=== PATIENT | female | born 1970 | race Caucasian/White ===

== ENCOUNTER 2016-09-19 20:30 | Emergency (ER) | payer BC, OTHER ==
[~2016-09-19] VITALS: Ht 154.9 cm; Wt 76.3 kg
[~2016-09-19 20:30] MED LIST: PROMSYP PO; TEMA30CA PO; TOPI100 PO; TOPI50TA4 PO; XANA1TAB6 PO; ZITH250T PO
[2016-09-19 21:10] VITALS: BP 107/76; PULSE 88; RESP 18; TEMP 97.9; O2SAT 100
[2016-09-19] MEDS ORDERED: ROPI5TAB PO (21:32)
[2016-09-19] MEDS ORDERED: HYDR12.57 PO (21:32)
[2016-09-19] MEDS ORDERED: ALPR1TAB3 PO (21:32)
[2016-09-19] MEDS ORDERED: NEXI20CA PO (21:32)
[2016-09-19] MEDS ORDERED: LISI-515 PO (21:32)
[2016-09-19] MEDS ORDERED: TEMA30CA PO (21:32)
[2016-09-19] MEDS ORDERED: KETOROLAC TROMETHAMINE 60 MG/2 ML (IM) VIAL IM ONE (22:15)
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
--- NOTE | 2016-09-19 22:49 | RADHPO ---
EXAM DATE/TIME: 09/19/2016 22:17 [facility] COMPARISON: No previous studies available for comparison. INDICATIONS : Right foot pain from fall. MEDICAL HISTORY : None. SURGICAL HISTORY : None. ENCOUNTER: Initial ACUITY: 1 day PAIN SCORE: 8/10 LOCATION: lateral and planter side of foot. FINDINGS: Three view examination of the right foot demonstrates no soft tissue swelling, dislocation, or fractu re. The tarsal bones appear intact. The interphalangeal and metatarsophalangeal joints are intact. The calcaneus is intact. Bony mineralization is normal. CONCLUSION: 1. No acute findings. Mild hallux valgus deformity. Carmine Haywood MD on September 19, 2016 at 22:47 Board Certified Radiologist. This report was verified electronically.
--- NOTE | 2016-09-19 22:50 | RADHPO ---
EXAM DATE/TIME: 09/19/2016 22:20 [facility] COMPARISON: No previous studies available for comparison. INDICATIONS : Right ankle pain from fall. MEDICAL HISTORY : Prior sprained right ankle SURGICAL HISTORY : None. ENCOUNTER: Initial ACUITY: 1 day PAIN SCORE: 8/10 LOCATION: lateral side of ankle. FINDINGS: Three view exam was performed of the right ankle. The bony structures are in normal alignment. No e vidence of fracture, dislocation, or soft tissue swelling. The ankle mortise is intact. No radiopaq ue foreign bodies are seen. Bony mineralization is normal. CONCLUSION: Normal examination for a patient of this age. Carmine Haywood MD on September 19, 2016 at 22:48 Board Certified Radiologist. This report was verified electronically.
[2016-09-19] MEDS ORDERED: NAPR500T PO (22:56)
== END 2016-09-19 23:09 | disposition home or self-care (01) ==
LOC: PHEFT 20:30
DX: S93.401A Sprain of unspecified ligament of right ankle, initial encounter (principal); S93.601A Unspecified sprain of right foot, initial encounter; F41.9 Anxiety disorder, unspecified; I10 Essential (primary) hypertension; M20.11 Hallux valgus (acquired), right foot; W10.8XXA Fall (on) (from) other stairs and steps, initial encounter; Y93.9 Activity, unspecified; Y99.9 Unspecified external cause status
CPT/HCPCS: 73610; 73630; 96372; 99283; E0113; J1885

== ENCOUNTER 2017-06-05 19:47 | Emergency (ER) | payer BC, OTHER ==
[~2017-06-05] VITALS: Ht 154.9 cm; Wt 78.0 kg
[~2017-06-05 19:47] MED LIST changes: +ALPR1TAB3 PO; +HYDR12.57 PO; +LISI-515 PO; +NAPR500T2 PO; +NEXI20CA PO; -PROMSYP PO; +ROPI5TAB PO; -TOPI100 PO; -TOPI50TA4 PO; -XANA1TAB6 PO; -ZITH250T PO
[2017-06-05 19:58] VITALS: BP 105/73; PULSE 98; TEMP 97.9; O2SAT 99
[2017-06-05] MEDS ORDERED: LISI20TA3 PO (20:39)
[2017-06-05] MEDS ORDERED: TOPI50TA7 PO (20:39)
[2017-06-05] MEDS ORDERED: RANI150T PO ×2 (20:39→22:44)
[2017-06-05] MEDS ORDERED: CYCL10TA PO (20:39)
[2017-06-05] MEDS ORDERED: TOPI200T7 PO (20:39)
[2017-06-05] MEDS ORDERED: PANTOPRAZOLE SODIUM 40 MG VIAL IV PUSH ONE (21:00)
[2017-06-05] MEDS ORDERED: ONDANSETRON HCL 4 MG/2 ML VIAL IV PUSH ONE (21:00)
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
[2017-06-05 21:19] LABS: AUTOMATED NEUTROPHIL # 6.7 TH/MM3 (1.8-7.7); BASOPHIL # 0.2 TH/MM3 (0-0.2); BASOPHIL % 2.1 % (0.0-2.0); EOSINOPHIL # 0.1 TH/MM3 (0-0.4); EOSINOPHIL % 1.3 % (0.0-4.0); HEMATOCRIT 41.5 % (35.0-46.0); HEMOGLOBIN 13.5 GM/DL (11.6-15.3); LYMPH % 29.5 % (9.0-44.0); LYMPHOCYTE # 3.2 TH/MM3 (1.0-4.8); MEAN CORPUSCULAR HEMOGLOBIN 28.5 PG (27.0-34.0); MEAN CORPUSCULAR HGB CONC 32.5 % (32.0-36.0); MEAN PLATELET VOLUME 9.6 FL (7.0-11.0); MONO % 7.5 % (0.0-8.0); MONOCYTE # 0.8 TH/MM3 (0-0.9); NEUT % 59.6 % (16.0-70.0); PLATELET COUNT 207 TH/MM3 (150-450); RED BLOOD COUNT 4.72 MIL/MM3 (4.00-5.30); RED CELL DISTRIBUTION WIDTH 13.9 % (11.6-17.2)
[2017-06-05 21:27] LABS: CHLORIDE 104 MEQ/L (98-107); SODIUM (NA) 138 MEQ/L (136-145)
[2017-06-05 21:31] LABS: ALBUMIN 3.7 GM/DL (3.4-5.0); BICARBONATE 27.7 MEQ/L (21.0-32.0); BLOOD UREA NITROGEN 17 MG/DL (7-18); CALCIUM 9.8 MG/DL (8.5-10.1); GLUCOSE,RANDOM 99 MG/DL (74-106); LIPASE 124 U/L (73-393)
[2017-06-05 21:34] LABS: ALT (GPT) 17 U/L (10-53); AST (GOT) 9 U/L (15-37); GLOMERULAR FILTRATION RATE 59 ML/MIN (>89)
[2017-06-05 21:36] LABS: TOTAL BILIRUBIN ADULT 0.2 MG/DL (0.2-1.0); TOTAL PROTEIN 7.3 GM/DL (6.4-8.2)
[2017-06-05 21:37] LABS: ALKALINE PHOSPHATASE 83 U/L (45-117)
[2017-06-05 22:39] LABS: BILIRUBIN, URINE NEG (NEG); BLOOD, URINE TRACE (NEG); GLUCOSE,URINE NEG (NEG); KETONE, URINE NEG (NEG); NITRITE,URINE NEG (NEG); PH, URINE 5.5 (5.0-8.5); URINE LEUKOCYTE ESTERASE NEG (NEG)
--- NOTE | 2017-06-05 22:55 | EKG ---
Date Performed: 06/05/2017 Time Performed: 21:10:34 PTAGE: 46 years EKG: Sinus rhythm WITH OCCASIONAL ECTOPIC PREMATURE COMPLEXES MINIMAL VOLTAGE CRITERIA FOR LVH, CONSIDER NORMAL VARIAN T BORDERLINE ECG NO PREVIOUS TRACING DOCTOR: Ambrosio Oneil Interpretating Date/Time 06/05/2017 22:53:56
[2017-06-05 23:01] LABS: URINE COLOR YELLOW (YELLW/STRAW)
[2017-06-05 23:02] LABS: RBC, URINE 0-3 /hpf (0-3); SQUAMOUS EPITHELIAL CELL URINE 0-5 /hpf (0-5); WBC, URINE 0-2 /hpf (0-5)
[2017-06-05 23:13] VITALS: BP 102/55; PULSE 75; RESP 16; O2SAT 100
[2017-06-05] MEDS ORDERED: ZOFR4TAB3 SL (23:13)
== END 2017-06-05 23:28 | disposition home or self-care (01) ==
LOC: PHED 19:47
DX: K27.9 Peptic ulcer, site unspecified, unspecified as acute or chronic, without hemorrhage or perforation (principal); K21.9 Gastro-esophageal reflux disease without esophagitis; I10 Essential (primary) hypertension
CPT/HCPCS: 80053; 81001; 83690; 84703; 85025; 93005; 96374; 96375; 99284; C9113; J2405

== ENCOUNTER 2017-07-28 18:34 | Emergency (ER) | payer OTHER ==
[~2017-07-28] VITALS: Ht 152.4 cm; Wt 72.5 kg
[~2017-07-28 18:34] MED LIST changes: +CYCL10TA PO; -HYDR12.57 PO; -LISI-515 PO; +LISI20TA3 PO; -NAPR500T2 PO; +RANI150T PO; -TEMA30CA PO; +TOPI200T7 PO; +TOPI50TA7 PO; +ZOFR4TAB3 SL
[2017-07-28 18:46] VITALS: BP 131/62; PULSE 73; RESP 18; TEMP 98.3; O2SAT 98
[2017-07-28] MEDS ORDERED: SODIUM CHLORIDE 0.9% FLUSH 10 ML FLUSH IVF PRN (19:15)
[2017-07-28] MEDS ORDERED: KETOROLAC TROMETHAMINE 30 MG/ML (IVP) VIAL IV PUSH ONE (19:15)
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
--- NOTE | 2017-07-28 20:08 | RADRPT ---
EXAM DATE/TIME: 07/28/2017 19:24 [facility] COMPARISON: No previous studies available for comparison. INDICATIONS : Fell off of ladder and hit head. RADIATION DOSE: 26.60 CTDIvol (mGy) MEDICAL HISTORY : Hypertension. Gastroesophageal reflux disease. SURGICAL HISTORY : Tubal ligation. ENCOUNTER: Initial ACUITY: 1 day PAIN SCALE: 5/10 LOCATION: neck TECHNIQUE: Volumetric scanning of the cervical spine was performed. Multiplanar reconstructions in the sagittal, coronal and oblique axial planes were performed. Using automated exposure control and adjustment o f the mA and/or kV according to patient size, radiation dose was kept as low as reasonably achievable to obtain optimal diagnostic quality images. DICOM format image data is available electronically f or review and comparison. FINDINGS: There is normal alignment of the vertebral bodies and cervical spine in sagittal projection. Minimal curvature toward the right. Compression deformity or spondylolisthesis. Atlantoaxial articulation is intact. Moderate severity degenerative changes seen in the facet joints of the mid and lower cerv ical spine without evidence of facet joint malalignment. Spinous processes are intact. C2-C3: No fracture seen. The neural foramina are patent. C3-C4: No fracture seen. The neural foramina are patent. C4-C5: No fracture seen. The neural foramina are patent. C5-C6: No fracture seen. The neural foramina are patent. C6-C7: No fracture seen. The neural foramina are patent. C7-T1: No fracture seen. The neural foramina are patent. CONCLUSION: No evidence of compression deformity or spondylolisthesis. Leoncio Dover MD on July 28, 2017 at 20:03 Board Certified Radiologist. This report was verified electronically.
--- NOTE | 2017-07-28 20:08 | RADRPT ---
EXAM DATE/TIME: 07/28/2017 19:24 [facility] COMPARISON: No previous studies available for comparison. INDICATIONS : Fell off of ladder and hit head. RADIATION DOSE: 62.45 CTDIvol (mGy) MEDICAL HISTORY : Hypertension. Gastroesophageal reflux disease. SURGICAL HISTORY : Tubal ligation. ENCOUNTER: Initial ACUITY: 1 day PAIN SCALE: 5/10 LOCATION: cranial TECHNIQUE: Multiple contiguous axial images were obtained of the head. Using automated exposure control and adj ustment of the mA and/or kV according to patient size, radiation dose was kept as low as reasonably a chievable to obtain optimal diagnostic quality images. DICOM format image data is available electro nically for review and comparison. FINDINGS: CEREBRUM: The ventricles are normal for age. No evidence of midline shift, mass lesion, hemorrhage or acute in farction. No extra-axial fluid collections are seen. POSTERIOR FOSSA: The cerebellum and brainstem are intact. The 4th ventricle is midline. The cerebellopontine angle i s unremarkable. EXTRACRANIAL: The visualized portion of the orbits is intact. SKULL: The calvaria is intact. No evidence of skull fracture. CONCLUSION: Negative noncontrast CT brain. Leoncio Dover MD on July 28, 2017 at 20:05 Board Certified Radiologist. This report was verified electronically.
[2017-07-28 20:14] LABS: AUTOMATED NEUTROPHIL # 5.3 TH/MM3 (1.8-7.7); BASOPHIL # 0.1 TH/MM3 (0-0.2); BASOPHIL % 1.6 % (0.0-2.0); EOSINOPHIL # 0.1 TH/MM3 (0-0.4); EOSINOPHIL % 1.2 % (0.0-4.0); HEMATOCRIT 43.7 % (35.0-46.0); HEMOGLOBIN 14.3 GM/DL (11.6-15.3); LYMPH % 28.2 % (9.0-44.0); LYMPHOCYTE # 2.4 TH/MM3 (1.0-4.8); MEAN CELL VOLUME 88.3 FL (80.0-100.0); MEAN CORPUSCULAR HEMOGLOBIN 28.8 PG (27.0-34.0); MEAN CORPUSCULAR HGB CONC 32.7 % (32.0-36.0); MEAN PLATELET VOLUME 10.3 FL (7.0-11.0); MONO % 6.5 % (0.0-8.0); MONOCYTE # 0.6 TH/MM3 (0-0.9); NEUT % 62.5 % (16.0-70.0); PLATELET COUNT 201 TH/MM3 (150-450); RED BLOOD COUNT 4.94 MIL/MM3 (4.00-5.30); RED CELL DISTRIBUTION WIDTH 13.9 % (11.6-17.2); WHITE BLOOD COUNT 8.5 TH/MM3 (4.0-11.0)
[2017-07-28 20:22] LABS: CHLORIDE 102 MEQ/L (98-107); SODIUM (NA) 137 MEQ/L (136-145)
[2017-07-28 20:24] LABS: CALCIUM 9.9 MG/DL (8.5-10.1)
[2017-07-28 20:25] LABS: BICARBONATE 29.2 MEQ/L (21.0-32.0); BLOOD UREA NITROGEN 19 MG/DL (7-18); GLUCOSE,RANDOM 93 MG/DL (74-106); MAGNESIUM 2.3 MG/DL (1.5-2.5)
[2017-07-28 20:28] LABS: CREATININE 0.95 MG/DL (0.50-1.00); GLOMERULAR FILTRATION RATE 63 ML/MIN (>89)
[2017-07-28 20:33] LABS: TROPONIN I LESS THAN 0.02 NG/ML (0.02-0.05)
[2017-07-28 20:57] VITALS: RESP 16; O2SAT 98
--- NOTE | 2017-07-28 21:11 | RADRPT ---
EXAM DATE/TIME: 07/28/2017 19:42 [facility] COMPARISON: No previous studies available for comparison. INDICATIONS : Trauma, fall. MEDICAL HISTORY : Hypertension. Gastroesophageal reflux disease. SURGICAL HISTORY : None. ENCOUNTER: Initial ACUITY: 1 day PAIN SCORE: 0/10 LOCATION: Bilateral chest FINDINGS: A single view of the chest demonstrates the lungs to be symmetrically aerated without evidence of mas s, infiltrate or effusion. No evidence of pneumothorax. The cardiomediastinal contours are unremark able. Osseous structures are intact. CONCLUSION: The lungs are clear. Leoncio Dover MD on July 28, 2017 at 21:08 Board Certified Radiologist. This report was verified electronically.
[2017-07-28 21:23] VITALS: BP 119/71; PULSE 61; RESP 16; O2SAT 99
[2017-07-28] MEDS ORDERED: TRAM50TA PO (22:24)
[2017-07-28] MEDS ORDERED: traMADol HCL 50 MG TAB PO ONE (22:30)
[2017-07-28 23:06] VITALS: BP 131/72
[2017-07-28 23:13] VITALS: RESP 16
--- NOTE | 2017-07-29 13:14 | EKG ---
Date Performed: 07/28/2017 Time Performed: 19:19:17 PTAGE: 46 years EKG: Sinus rhythm NORMAL ECG PREVIOUS TRACING : 06/05/2017 21.10 Compared to prior tracing no significant change DOCTOR: Armaan Pham Interpretating Date/Time 07/29/2017 13:13:02
== END 2017-07-28 23:13 | disposition home or self-care (01) ==
LOC: PHED 18:34
DX: R55 Syncope and collapse (principal); I10 Essential (primary) hypertension; W11.XXXA Fall on and from ladder, initial encounter; Y92.512 Supermarket, store or market as the place of occurrence of the external cause; Y99.0 Civilian activity done for income or pay
CPT/HCPCS: 70450; 71010; 72125; 80048; 83735; 84484; 85025; 93005; 96374; 99285; J1885